=== PATIENT | female | born 2000 | race Caucasian/White ===

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

== ENCOUNTER → 2020-09-16 17:20 | Outpatient (BNVA) | payer BC, SELFPAY | PROVIDERS: Visit Provider Emergency Medicine | DX: Z20.822 Contact with and (suspected) exposure to COVID-19 (principal); R11.0 Nausea; Z20.828 Contact with and (suspected) exposure to other viral communicable diseases | CPT/HCPCS: 87635 ==

== ENCOUNTER → 2021-01-26 15:32 | Outpatient (BNVA) | payer BC, SELFPAY | PROVIDERS: Visit Provider Nurse Practitioner Family | DX: J02.9 Acute pharyngitis, unspecified (principal); J30.2 Other seasonal allergic rhinitis | CPT/HCPCS: 87071; 87880 ==

== ENCOUNTER → 2023-04-02 13:13 | Outpatient (BNVA) | payer BC, MEDICAID, SELFPAY | PROVIDERS: Visit Provider Emergency Medicine | DX: R52 Pain, unspecified (principal); N92.6 Irregular menstruation, unspecified | CPT/HCPCS: 73130; 81025 ==

== ENCOUNTER → 2023-05-01 12:00 | Outpatient (BNVA) | payer SELFPAY | PROVIDERS: Visit Provider Nurse Practitioner Family | DX: N89.8 Other specified noninflammatory disorders of vagina (principal); N76.0 Acute vaginitis; B96.89 Other specified bacterial agents as the cause of diseases classified elsewhere | CPT/HCPCS: 87491; 87591 ==

== ENCOUNTER 2023-11-10 22:37 | Emergency (ER) | payer MEDICAID, SELFPAY ==
[2023-11-10 22:45] VITALS: BP 126/83; PULSE 64; RESP 16; TEMP 36.4; O2SAT 99; BMI 25.5
[2023-11-10 23:53] VITALS: BP 118/77; PULSE 65; RESP 16; O2SAT 98
--- NOTE | 2023-11-11 00:26 | ED_ITS ---
HPI - Ear Problem General: Chief complaint: Ear Stated complaint: Left ear pain Time Seen by Provider: 11/10/23 22:40 Source: patient Mode of arrival: ambulatory Limitations: no limitations History of Present Illness: Patient is a 23-year-old female who presents to the emergency department complaining of left ear pain onset 2 weeks. Patient states that she thinks she has a bug or piece of cotton stuck in her ear, as she has a fullness sensation. She notes history of allergies but only takes Benadryl. She denies any discharge from her ear. No fevers, chills, recent sinus infections, nasal drai nage or congestion, or other symptoms at this time. She has not taken any symptoms for her ear pain. She states that her primary concern is to make sure that nothing is in there, as she is worried a spider crawled in while she was sleeping. No hearing loss reported. MD Complaint: ear pain Location: left ear Duration: constant Severity: mild Relieving factors: nothing Exacerbating factors: nothing Discharge from ear: no Associated symptoms: Reports no associated symptoms and ear or mastoid pain; Denies fever(s), headache(s) or neck pain Treatment prior to arrival: none Review of Systems General: Reports: 10 or more systems reviewed and unremarkable except in HPI and below Const: Denies: fever(s), chills or fatigue Eyes: Denies: change in vision ENMT: Reports: ear or mastoid pain; Denies: throat pain, ear discharge, nasal discharge or nasal congestion Card: Denies: chest pain, palpitations, swelling of feet/ankles or lightheadedness Resp: Denies: dyspnea, productive cough or wheezing GI: Denies: abdominal pain, nausea, vomiting, diarrhea or constipation : Denies: flank pain, difficulty voiding, dysuria or urinary frequency Musc: Denies: neck pain, back pain or joint pain Skin/Breast: Denies: rash Neuro: Denies: headache(s), numbness in extremities or weakness in extremities [facility] ED PFSH: Medical History Nicotine dependence, cigarettes, uncomplicated Nicotine dependence, other tobacco product, uncomplicated Other stimulant dependence, uncomplicated Social History Smoking and tobacco/nicotine status: current some day tobacco/nicotine user Physical Exam Const: COMMON NORMALS: no acute distress and healthy appearing GENERAL APPEARANCE: cooperative, comfortable and well developed HENMT: COMMON NORMALS: normocephalic, atraumatic, hearing grossly normal bilaterally, external ears normal, EAC's normal, TM's normal bilaterally, Normal external nose present and Normal nasal mucous membranes and turbinates present HEAD & SCALP: normal to inspection, normocephalic and atraumatic FACE & SINUS: normal facial exam and sinuses nontender NOSE: Normal external nose present, Normal nares present, No nasal polyps present and Normal nasal mucous membranes and turbinates present EXTERNAL EAR: Yes external ears normal, Yes mastoids normal and Yes no periauricular adenopathy EXTERNAL AUDITORY CANAL: EAC's normal TYMPANIC MEMBRANE: TM's normal bilaterally and other (No signs of foreign body) MOUTH: Normal oral and palatal mucosa present THROAT: posterior oropharynx normal and tonsils normal Eye: COMMON NORMALS: EOMs intact bilaterally, conjunctivae normal and normal visual rogers by confrontation GENERAL EYE: appearance normal, both eyes and all related structures CONJUNCTIVA: Yes conjunctivae normal Neck/C-Spine: COMMON NORMALS: full ROM, no lymphadenopathy, supple and no meningeal signs GENERAL: Yes normal visual inspection Chest: COMMONS NORMALS: normal inspection of the chest Resp: COMMON NORMALS: normal respiratory effort and clear to auscultation bilaterally EFFORT & INSPECTION: Yes able to speak in complete sentences AUSCULTATION: clear to auscultation bilaterally Cardio: COMMON NORMALS: regular rate, regular rhythm, S1 normal heart sound present and S2 normal heart sound present RATE: regular rate RHYTHM: regular rhythm HEART SOUNDS: S1 normal heart sound present, S2 normal heart sound present, no gallops, no murmurs and no rubs GI: COMMON NORMALS: Soft to palpation and No hepatosplenomegaly present INSPECTION: Yes normal to inspection PALPATION: Yes Soft to palpation and Yes No hepatosplenomegaly present Extremity: COMMON NORMALS: normal to inspection, full ROM and capillary refill normal Neuro: MENINGEAL SIGNS: Yes no meningeal signs Skin: COMMON NORMALS: no rashes or lesions noted GENERAL SKIN EXAM: no rashes or lesions noted Course Vital Signs: Vital signs: Vital Signs Temperature 97.5 F L 11/10/23 22:45 Pulse Rate 65 11/10/23 23:53 Respiratory Rate 16 11/10/23 23:53 Blood Pressure 118/77 11/10/23 23:53 Pulse Oximetry 98 11/10/23 23:53 Oxygen Delivery Me thod Room Air 11/10/23 22:45 [facility] - Ear Medical Decision Making Patient arrives stating him main complaint was make sure there is nothing stuck in her ear. She was reporting a pain/fullness, and did note a history of allergies. For this I believe the patient likely has a eustachian tube dysfunction, and because she has not treated this at this point I will prescribe Flonase as well as Zyrtec to treat for any other allergy symptoms. Her tympanic membrane on the left was completely normal with no signs of cerumen impaction or infection. Her vitals were unremarkable and rest of her physical examination was unremarkable as well. Reasons to return were discussed but she will follow- up with primary care as needed. No radiology studies performed this visit Discharge Plan Discharge Patient Disposition: Home Clinical Impression: Eustachian tube dysfunction Condition: Stable Prescriptions: New Zyrtec 10 mg tablet 10 mg PO DAILY PRN (Reason: allergy symptoms) Qty: 20 0RF fluticasone propionate 50 mcg/actuation spray,suspension 2 spray intranasal DAILY PRN (Reason: allergy symptoms) Qty: 16 0RF Rx Instructions: administer into each nostril No Action buspirone 10 mg tablet 10 mg PO TID hydroxyzine HCl 50 mg tablet 50 mg PO TID metronidazole 500 mg tablet 500 mg PO BID 7 Days Qty: 14 0RF Discharge Orders: Discharge ED (Routine); Ordered 11/10/23 Ordered By: Manav Marcano Patient Instructions: Allergies (ED) Activity Restrictions/Additional Instructions: Take Flonase and Zyrtec as prescribed. Follow-up with primary care if your symptoms do not improve for potential referral to ENT. Return with any new or worsening. Coding Level of Care Code ED [employer] for Genaro Felipe
== END 2023-11-10 23:53 | disposition home or self-care (01) ==
PROVIDERS: Emergency Provider Physician Assistant
DX: H69.92 Unspecified Eustachian tube disorder, left ear (principal); Z72.0 Tobacco use
CPT/HCPCS: 99283

== ENCOUNTER → 2024-01-31 10:20 | Outpatient (BNVA) | payer MEDICAID, SELFPAY | PROVIDERS: Visit Provider Nurse Practitioner | DX: J02.9 Acute pharyngitis, unspecified (principal) | CPT/HCPCS: 87880 ==

== ENCOUNTER → 2024-02-26 18:14 | Outpatient (BNVA) | payer MEDICAID, SELFPAY | PROVIDERS: Visit Provider Family Medicine | DX: S69.91XA Unspecified injury of right wrist, hand and finger(s), initial encounter (principal); W22.8XXA Striking against or struck by other objects, initial encounter; M20.091 Other deformity of right finger(s); M79.641 Pain in right hand | CPT/HCPCS: 73130 ==

== ENCOUNTER → 2024-04-04 12:10 | Outpatient (BNVA) | payer OTHER, BC, MEDICAID, SELFPAY | PROVIDERS: Visit Provider Nurse Practitioner | DX: J02.9 Acute pharyngitis, unspecified (principal) | CPT/HCPCS: 87880 ==

== ENCOUNTER → 2025-06-03 13:04 | Outpatient (BNVA) | payer OTHER, SELFPAY | PROVIDERS: Visit Provider Psychiatry & Neurology Psychiatry | DX: Z79.899 Other long term (current) drug therapy (principal) | CPT/HCPCS: 80061; 83036 ==